=== PATIENT | male | born 2000 | race American Indian/Alaskan Native ===

== ENCOUNTER 2020-06-30 00:31 | Emergency (ER) | payer BC | END 2020-06-30 01:15 | disposition left against medical advice (07) | LOC: ED 00:31 | DX: R07.89 Other chest pain (principal); Z53.21 Procedure and treatment not carried out due to patient leaving prior to being seen by health care provider ==

== ENCOUNTER 2022-03-21 22:04 | Emergency (ER) | payer BC ==
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
[2022-03-22 07:42] VITALS: BP 114/76
== END 2022-03-22 07:40 | disposition home or self-care (01) ==
LOC: ED 22:04
DX: J06.9 Acute upper respiratory infection, unspecified (principal)
CPT/HCPCS: 87116; 87430; 99283